=== PATIENT | female | born 1965 | race Caucasian/White ===

== ENCOUNTER → 2017-10-02 | Outpatient (CLI) | payer OTHER ==
[~2017-10-02] VITALS: Ht 158.8 cm; Wt 63.5 kg
[~2017-10-02] MED LIST: ALLEGRA60 MG PO; SYNTHROID112 MCG PO
== END | disposition home or self-care (01) ==
LOC: AMB 07:50
DX: Z12.11 Encounter for screening for malignant neoplasm of colon (principal); K22.6 Gastro-esophageal laceration-hemorrhage syndrome; R14.0 Abdominal distension (gaseous); K64.8 Other hemorrhoids; R11.10 Vomiting, unspecified; R10.13 Epigastric pain; L30.9 Dermatitis, unspecified; F41.1 Generalized anxiety disorder; E78.5 Hyperlipidemia, unspecified; E03.9 Hypothyroidism, unspecified; Z80.49 Family history of malignant neoplasm of other genital organs; Z80.8 Family history of malignant neoplasm of other organs or systems; Z82.49 Family history of ischemic heart disease and other diseases of the circulatory system
CPT/HCPCS: 88305; 88342 TC; J2405